=== PATIENT | female | born 1990 | race Caucasian/White ===

== ENCOUNTER 2017-09-08 18:48 | Emergency (ER) | payer MEDICAID, OTHER ==
--- NOTE | 2017-09-08 20:23 | RADIOLOGY REPORT (SQ) ---
EXAM DESCRIPTION: L SPINE WHOLE COMPLETED DATE/TIME: 09/08/2017 8:14 pm REASON FOR STUDY: back pain COMPARISON: None. NUMBER OF VIEWS: Five views including obliques. TECHNIQUE: AP, lateral, oblique, and sacral radiographic images acquired of the lumbar spine. LIMITATIONS: None. FINDINGS: MINERALIZATION: Normal. SEGMENTATION: Normal. No transitional anatomy. ALIGNMENT: Normal. VERTEBRAE: Maintained height. No fracture or worrisome bone lesion. DISCS: Preserved height. No significant osteophytes or end plate irregularity. POSTERIOR ELEMENTS: Pedicles and facets are intact. No pars defect or posterior arch defects. HARDWARE: None in the spine. PARASPINAL SOFT TISSUES: Normal. PELVIS: Intact as visualized. No fractures or worrisome bone lesions. SI joints intact. OTHER: No other significant finding. IMPRESSION: NORMAL 5 VIEW LUMBAR SPINE. TECHNICAL DOCUMENTATION: JOB ID: [id number] [employer]- All Rights Reserved
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
[2017-09-08] MEDS ORDERED: KETOROLAC TROMETHAMINE 60 MG/2 ML SDV IM ONE (22:19)
== END 2017-09-08 22:27 | disposition home or self-care (01) ==
LOC: ER 18:48
DX: M54.31 Sciatica, right side (principal)
CPT/HCPCS: 99283; 96372; 72110; J1885

== ENCOUNTER → 2017-11-10 | Outpatient (CLI) | payer OTHER ==
--- NOTE | 2017-11-10 09:19 | WOMENS IMAGING REPORT ---
EXAM DESCRIPTION: U/S BREAST UNILAT LIMITED COMPLETED DATE/TIME: 11/10/2017 8:42 am REASON FOR STUDY: LEFT BREAST LUMP N63.20 UNSPECIFIED LUMP IN THE LEFT BREAST, UNSPECIFIED QUAD COMPARISON: None. TECHNIQUE: Real-time and static grayscale imaging performed of the left breast targeted to the area of breast pain. Selected color Doppler images recorded. LIMITATIONS: None. FINDINGS: MASS: No mass identified. Normal glandular tissue. OTHER: No other significant finding. IMPRESSION: No suspicious findings detected by ultrasound. BIRAD: 1 Negative. RECOMMENDATION: RECOMMENDED FOLLOW-UP: Follow-up as clinically indicated. COMMENT: The [employer] (ACR) has developed recommendations for screening MRI of the breasts in certain patient populations, to be used in conjunction with mammography. Breast MRI s urveillance may be appropriate for women with more than 20% lifetime risk of developing breast cancer as determined by genetic testing, significant family history of the disease, or history of mantle r adiation for Hodgkins Disease. ACR Practice Guidelines 2008. TECHNICAL DOCUMENTATION: JOB ID: [id number] [employer]- All Rights Reserved
== END ==
LOC: WI 08:09
DX: N63.20 Unspecified lump in the left breast, unspecified quadrant (principal)
CPT/HCPCS: 76642

== ENCOUNTER 2018-11-24 03:43 | Emergency (ER) | payer SELFPAY ==
[2018-11-24 06:23] LABS: APPEARANCE,URINE CLEAR; BILIRUBIN,URINE NEGATIVE (NEGATIVE); COLOR,URINE YELLOW; GLUCOSE, URINE NEGATIVE (NEGATIVE); KETONES,URINE NEGATIVE (NEGATIVE); LEUKOCYTE ESTERASE,URINE NEGATIVE (NEGATIVE); NITRITE,URINE NEGATIVE (NEGATIVE); PROTEIN,URINE NEGATIVE (NEGATIVE); URINE SPECIFIC GRAVITY 1.024; UROBILINOGEN,URINE NEGATIVE mg/dL (<2.0)
[2018-11-24 06:27] LABS: ALANINE AMINOTRANSFERASE 31 U/L (9-52); ALBUMIN 4.7 g/dL (3.5-5.0); ALKALINE PHOSPHATASE 80 U/L (38-126); ANION GAP 10 (5-19); ASPARTATE AMINO TRANSFERASE 22 U/L (14-36); BILIRUBIN,DIRECT 0.2 mg/dL (0.0-0.4); BILIRUBIN,TOTAL 0.3 mg/dL (0.2-1.3); BLOOD UREA NITROGEN 10 mg/dL (7-20); CALCIUM 9.7 mg/dL (8.4-10.2); CARBON DIOXIDE 26 mmol/L (22-30); CHLORIDE 103 mmol/L (98-107); GLUCOSE 106 mg/dL (75-110); LIPASE 98.1 U/L (23-300); POTASSIUM 4.4 mmol/L (3.6-5.0); TOTAL PROTEIN 7.4 g/dL (6.3-8.2)
[2018-11-24] MEDS ORDERED: ONDANSETRON HCL INJ/PF 4 MG/2 ML SDV IV ONE (06:27)
[2018-11-24] MEDS ORDERED: NORMAL SALINE 1000 ML 1,000 ML IV ONE (06:27)
--- NOTE | 2018-11-24 06:31 | ER Document Report ---
ED GI/ - General Chief Complaint: Vomiting Stated Complaint: ABDOMINAL PAIN Time Seen by Provider: 11/24/18 06:13 Notes: 38-year-old female presents with nausea vomiting abdominal cramping and fever. The patient stated her symptoms began yesterday. She describes achiness all over her body crampiness in her abdomen. Vomiting. Some nasal congestion. Had a few loose stools but no specific diarrhea denies black bloody or tarry schools rates her discomfort muscle aches as severe. Nothing really makes it better or worse. She denies any recent sick contacts but children do go to school. Denies falls or trauma. States she is vomited multiple times more than she can count. Denies coffee-ground emesis. TRAVEL OUTSIDE OF THE [place] IN LAST 30 DAYS: No - Related Data Allergies/Adverse Reactions: No Known Drug Allergies Allergy (Severe, Verified 09/08/17 18:49) Past Medical History - Social History Smoking Status: Never Smoker Family History: Reviewed & Not Pertinent Patient has suicidal ideation: No Patient has homicidal ideation: No - Past Medical History Cardiac Medical History: Denies: Hx Coronary Artery Disease, Hx Heart Attack, Hx Hypertension Pulmonary Medical History: Denies: Hx Asthma, Hx Bronchitis, Hx COPD, Hx Pneumonia, Hx Tuberculosis Neurological Medical History: Denies: Hx Cerebrovascular Accident, Hx Seizures Renal/ Medical History: Denies: Hx Peritoneal Dialysis Musculoskeletal Medical History: Denies Hx Arthritis Past Surgical History: Reports: Hx Gynecologic Surgery - D&C. Denies: Hx Appendectomy, Hx Bowel Surgery, Hx Section, Hx Cholecystectomy, Hx Coronary Artery Bypass Graft, Hx Gastric Bypass Surgery, Hx Herniorrhaphy, Hx Hysterectomy, Hx Mastectomy, Hx Pacemaker, Hx Tonsillectomy, Hx Tubal Ligation - Immunizations Immunizations up to date: Yes Hx Diphtheria, Pertussis, Tetanus Vaccination: Yes - 07/28/13 Review of Systems - Review of Systems Constitutional: Chills, Fever Cardiovascular: denies: Chest pain, Dyspnea Respiratory: denies: Short of breath Gastrointestinal: Abdominal pain, Nausea, Vomiting. denies: Diarrhea, Blood in vomit, Black stools, Rectal bleeding Genitourinary: denies: Dysuria, Hematuria Musculoskeletal: Muscle pain Neurological/Psychological: denies: Headaches -: Yes All other systems reviewed and negative Physical Exam - Vital signs Vitals: Temp Pulse Resp BP Pulse Ox 100.3 F 130 H 24 H 127/68 H 98 11/24/18 03:50 11/24/18 03:50 11/24/18 03:50 11/24/18 03:50 11/24/18 03:50 - Notes Notes: GENERAL_APPEARANCE: well_nourished, alert, cooperative, appears uncomfortable VITALS: reviewed, see vital signs table. HEAD: no_swelling\tenderness on the head. EYES: PERRL, EOMI, conjunctiva_clear. NOSE: no_nasal_discharge. MOUTH: (-)decreased moisture. THROAT: no_tonsilar_inflammation, no_airway_obstruction. no_lymphadenopathy NECK: supple, no_neck_tenderness, (-)thyromegaly. BACK: no_back_tenderness. CHEST_WALL: no_chest_tenderness. LUNGS: no_wheezing, no_rales, no_rhonchi, (-)accessory muscle use, good air exchange bilateral. HEART: normal_rate, normal_rhythm, normal_S1, normal_S2, (-)S3, (-)S4, no_murmur, no_rub. ABDOMEN: normal_BS, soft, no focal_abd_tenderness, (-)guarding, (-)rebound, no_organomegaly, no_abd_masses. EXTREMITIES: good pulses in all_extremities, no_swelling\tenderness in the extremities, no_edema. SKIN: warm, dry, good_color, no_rash. MENTAL_STATUS: speech_clear, oriented_X_3, normal_affect, responds_appropriately to questions. Course - Re-evaluation Re-evalutation: 11/24/18 06:31 28-year-old female presents with nausea vomiting fever. We will swab her for the flu. Check some generalized labs abdominal series x-rays. Give her IV fluids and Zofran her abdomen overall soft and supple there is no focal tenderness just generalized discomfort throughout. 11/24/18 07:54 Influenza A is positive Abdominal series x-rays is negative. Lab work is fairly reassuring. Patient was given a liter of IV fluids and medi cine she is feeling better. The patient will be given a prescription for Tamiflu and nausea medicine and ibuprofen for home. I spoke with her about running its course. When to return and concern for secondary infections. - Vital Signs Vital signs: Temp Pulse Resp BP Pulse Ox 99.5 F 100 17 118/70 100 11/24/18 07:43 11/24/18 07:43 11/24/18 07:43 11/24/18 06:04 11/24/18 07:43 - Laboratory Result Diagrams: 11/24/18 06:00 11/24/18 06:00 Laboratory results interpreted by me: 11/24/18 06:00 Seg Neuts % (Manual) 91 H Lymphocytes % (Manual) 4 L Abs Lymphs (Manual) 0.3 L - Diagnostic Test Radiology reviewed: Reports reviewed Radiology results interpreted by me: 11/24/18 07:54 Acute Abdomen Series 11/24/18 06:28 IMPRESSION: 1. No evidence of acute intrathoracic disease.. 2. Nonspecific nonobstructive bowel gas pattern. Discharge - Discharge Clinical Impression: Influenza A Condition: Good Disposition: HOME, SELF-CARE Instructions: Influenza ([facility]) [id number] Prescriptions: Ibuprofen [Motrin 800 mg Tablet] 800 mg PO Q8H PRN #30 tab PRN Reason: Ondansetron [Zofran Odt 4 mg Tablet] 1 - 2 tab PO Q4H PRN #15 tab.rapdis PRN Reason: For Nausea/Vomiting Oseltamivir Phosphate [Tamiflu 75 mg Capsule] 75 mg PO BID #10 capsule Forms: Return to School, Return to Work
[2018-11-24] MEDS ORDERED: ACETAMINOPHEN 325 MG TABLET PO ONE (06:32)
[2018-11-24 07:00] LABS: HEMATOCRIT 38.6 % (36.0-47.0); HEMOGLOBIN 13.6 g/dL (12.0-15.5); MEAN CORPUSCULAR HEMOGLOBIN 29.4 pg (27.0-33.4); MEAN CORPUSCULAR HGB CONC 35.3 g/dL (32.0-36.0); MEAN CORPUSCULAR VOLUME 83 fl (80-97); PLATELET COUNT 223 10^3/uL (150-450); RED BLOOD COUNT 4.63 10^6/uL (3.72-5.28); RED CELL DISTRIBUTION WIDTH 12.7 % (11.5-14.0); WHITE BLOOD COUNT 5.8 10^3/uL (4.0-10.5)
[2018-11-24 07:10] LABS: ABSOLUTE LYMPHOCYTES# (MANUAL) 0.3 10^3/uL (0.5-4.7); ABSOLUTE MONOCYTES # (MANUAL) 0.2 10^3/uL (0.1-1.4); ABSOLUTE NEUTROPHILS# (MANUAL) 5.3 10^3/uL (1.7-8.2); BASOPHILS % (MANUAL) 0 % (0-2); EOSINOPHILS % (MANUAL) 1 % (0-6); LYMPHOCYTES % (MANUAL) 4 % (13-45); MONOCYTES % (MANUAL) 3 % (3-13); PLATELET COMMENT ADEQUATE; RBC MORPHOLOGY COMMENT NORMO-CYTIC/CHROMIC; SEGMENTED NEUTROPHILS % (MAN) 91 % (42-78); TOTAL CELLS COUNTED 100
[2018-11-24 07:31] LABS: A TYPE INFLUENZA AG POSITIVE (NEGATIVE)
[2018-11-24 07:32] LABS: B INFLUENZA AG NEGATIVE (NEGATIVE)
--- NOTE | 2018-11-24 07:36 | RADIOLOGY REPORT (SQ) ---
EXAM: X-ray abdomen supine and erect with chest CLINICAL DATA: 28-year-old female with abdominal pain TECHNICAL DATA: Three x-ray images of the chest and abdomen were performed including a PA radiograph of the chest as well as supine and upright views of the abdomen. This study was performed on 11/24/2018 at 7:17 AM. Comparison: Prior chest x-ray performed on 09/14/2013. FINDINGS: The lungs are well expanded. The cardiac silhouette is within normal limits. There is no focal consolidation, pleural effusion or pneumothorax. The costophrenic sulci are clear. The bowel gas pattern is nonspecific and nonobstructive. There is no evidence of free air or significant air-fluid levels. No pathologic abdominal calcifications are identified. No focal soft tissue abnormalities are seen. There are metallic artifacts projecting over the pelvis. IMPRESSION: 1. No evidence of acute intrathoracic disease.. 2. Nonspecific nonobstructive bowel gas pattern.
[2018-11-24 08:15] VITALS: BP 101/57
== END 2018-11-24 08:11 | disposition home or self-care (01) ==
LOC: ER 03:43
DX: J10.1 Influenza due to other identified influenza virus with other respiratory manifestations (principal); R11.10 Vomiting, unspecified; R10.9 Unspecified abdominal pain; R50.9 Fever, unspecified; R09.81 Nasal congestion; R19.7 Diarrhea, unspecified
CPT/HCPCS: 99284; 96361; 96374; 36415; 83690; 85025; 81025; 80053; 81001; 87804; 74022; J2405; J7030